=== PATIENT | female | born 1995 | race Caucasian/White ===

== ENCOUNTER 2017-05-14 07:32 | Emergency (ER) | payer OTHER ==
--- NOTE | 2017-05-14 08:27 | ER NURSING DOCUMENTATION ---
Nurse's Notes [facility] Name:Tarsha Meza Age:21 yrs Sex:Female :1995 Arrival Date:05/14/2017 Time:07:32 Bed3 Private MD: Diagnosis:Urinary Tract Infection (UTI) Presentation: 05/14 07:35 Acuity: KELSY 3 lc 07:42 Presenting complaint: Patient states: FOR 2 DAYS C/O DYSURIA WITH FREQUENCY AND lc BURNING, NO FEVER, BUT NOW HAS LEFT FLANK PAIN. Transition of care: patient was not received from another setting of care. Notified ED Physician of patient's arrival and CC. 07:42 Method Of Arrival: Walk In Triage Assessment: 07:49 General: Appears in no apparent distress, Behavior is appropriate for age, cooperative. lc Pain: Complains of pain in LEFT FLANK Pain does not radiate. Pain At worst was 4 out of 10 on a pain scale. Quality of pain is described as dull. Neuro: Level of Consciousness is awake, alert, Oriented to person, place, time, event. GI: Abdomen is non- distended Abd is soft and non tender X 4 quads. Derm: Skin is pink, warm & dry. Historical: - Allergies: No known drug Allergies; - Home Meds: 1. CONTROL - PMHx: KIDNEY STONES; - PSHx: None; - Tetanus: < 10 years. - Ebola Screening: : Patient negative for fever greater than or equal to 101.5 degrees Fahrenheit, and additional compatible Ebola Virus Disease symptoms. Patient denies exposure to infectious person. Patient denies travel to an Ebola-affected area in the 21 days before illness onset. . - Immunization history: Flu Vaccine < 1 year. - Social history: Smoking status: Patient states was never smoker of tobacco. Screenin:51 Infectious Disease Risk None. Abuse screen: Denies threats or abuse. Denies injuries lc from another. Nutritional screening: No deficits noted. Assessment: 07:51 See Triage Assessment done by same RN. Vital Signs: 07:50 BP 118 / 71; Pulse 76; Resp 16; Temp 97.8; Pulse Ox 93% on R/A; Weight 77.11 kg; Height lc 6 ft. (182.88 cm); Pain 4/10; 08:25 Pain 2/10; lc 07:50 Body Mass Index 23.06 (77.11 kg, 182.88 cm) ED Course: 07:34 Patient arrived in ED. dp 07:35 Jade Leonardo RN is Primary Nurse. 07:35 Triage completed. 07:51 Valuables Remains with patient Patient has correct armband on for positive lc identification. Bed in low position. Call light in reach. 07:53 Malachi Agrawal MD is Attending Physician. tl1 08:07 Kieran Wilder MD is Referral Physician. tl1 08:25 Urine collected. Clean catch specimen. lc Administered Medications: No medications were administered Point of Care Testing: Urine Dip: 07:55 pH: 7.0; ; Specific [place]: 1.020; Ketones: Negative; Glucose: Negative; Protein: lc Positive (++); Leukocytes: Positive; Nitrite: Negative ; Blood: Large (+++); Bilirubin: Negative ; Urobilinogen: Normal Outcome: 08:08 Discharge ordered by . tl1 08:25 Discharged to home ambulatory. 08:25 Condition: stable 08:25 Discharge Assessment: Patient awake, alert and oriented x 3. No cognitive and/or functional deficits noted. Patient verbalized understanding of disposition instructions. 08:25 Discharge instructions given to patient, Instructed on discharge instructions, follow up and referral plans. medication usage, RETURN IF PAIN WORSENS AND CULTURE RESULTS Demonstrated understanding of instructions, medications, Prescriptions given X 3. 08:26 Patient left the ED. 07 11:24 Discharge F/U Call: Spoke with: patient. Have you filled your prescriptions? yes. Did lc your discharge instructions answer all of your questions? yes Overall Care on a scale of 1-10 with 10 being the best care, you rate our care as: Other comments: FEELING BETTER, WILL CALL TOMORROW TO SEE WHICH ABX SHE SHOULD STAY ON WITH CULTURE RESULTS Signatures: Jade Leonardo RN RN Malachi Agrawal MD MD tl1 Saadia Lynn dp
--- NOTE | 2017-05-14 08:27 | ER PHYSICIAN DOCUMENTATION ---
Physician Documentation [facility] Name:Tarsha Meza Age:21 yrs Sex:Female :1995 Arrival Date:05/14/2017 Time:07:32 Bed3 Private MD: Malachi George Disposition: 05/14 08:28 Chart complete. tl1 Disposition: 05/14/17 08:08 Discharged to Home/Self Care. Impression: Urinary Tract Infection (UTI). - Condition is Good. - Discharge Instructions: BLADDER INFECTION, Female (Adult). - Prescriptions for Pyridium 200 mg Oral tablet - take 1 tablet by ORAL route 3 times per day; 6 tablet. Bactrim DS 160- 800 mg Oral Tablet - take 1 tablet by ORAL route every 12 hours for 3 days; 6 tablet. Keflex 500 mg Oral - take 1 capsule by ORAL route every 6 hours for 10 days; 12 capsule. - Medical Reconciliation form form. - Follow up: Kieran Wilder MD; When: 2 - 3 days; Reason: Recheck today's complaints, Continuance of care. - Problem is new. - Symptoms are unchanged. HPI: 07:53 This 21 yrs old Female presents to ER via Walk In with complaints of UTI tl1 Symptoms. 08:11 The patient presents with flank pain, on the left, urinary symptoms, dysuria, tl1 frequency, urgency. Onset: The symptoms/episode began/occurred gradually, 2 day(s) ago. Modifying factors: The symptoms are alleviated by nothing, the symptoms are aggravated by nothing. Associated signs and symptoms: The patient has no apparent associated signs or symptoms. Ectopic Risk: No risk factors noted. Severity of symptoms: At their worst the symptoms were moderate, in the emergency department the symptoms are unchanged. The patient's method of control includes BCP. Historical: - Allergies: No known drug Allergies; - Home Meds: 1. CONTROL - PMHx: KIDNEY STONES; - PSHx: None; - Tetanus: < 10 years. - Ebola Screening: : Patient negative for fever greater than or equal to 101.5 degrees Fahrenheit, and additional compatible Ebola Virus Disease symptoms. Patient denies exposure to infectious person. Patient denies travel to an Ebola-affected area in the 21 days before illness onset. . - Immunization history: Flu Vaccine < 1 year. - Social history: Smoking status: Patient states was never smoker of tobacco. ROS: 08:12 Positive for urinary symptoms. tl1 08:12 Constitutional: Negative for chills, fever. 08:12 All other systems are negative. Exam: 08:12 Constitutional: This is a well developed, well nourished patient who is awake, alert, tl1 and in no acute distress. 08:12 Neck: ROM/movement: is normal, is supple. 08:12 Cardiovascular: Rate: normal. 08:12 Respiratory: Respirations: normal. 08:12 Abdomen/GI: Palpation: soft, mild abdominal tenderness, in the suprapubic area. 08:12 Back: CVA tenderness, is absent. 08:12 : CVA tenderness, is absent. 08:12 Neuro: Exam negative for acute changes. Vital Signs: 07:50 BP 118 / 71; Pulse 76; Resp 16; Temp 97.8; Pulse Ox 93% on R/A; Weight 77.11 kg; Height lc 6 ft. (182.88 cm); Pain 4/10; 08:25 Pain 2/10; lc 07:50 Body Mass Index 23.06 (77.11 kg, 182.88 cm) lc MDM: 07:53 Patient medically screened. tl1 08:17 Differential diagnosis: kidney stone, urinary tract infection, early pyelonephritis. tl1 Data reviewed: vital signs, nurses notes, and as a result, I will discharge patient. Counseling: I had a detailed discussion with the patient and/or guardian regarding: the historical points, exam findings, and any diagnostic results supporting the discharge/admit diagnosis, lab results, the need for outpatient follow up, for a recheck, a family practitioner, to return to the emergency department if symptoms worsen or persist or if there are any questions or concerns that arise at home. Response to treatment: There is no appreciated change of the patient's symptoms at this time, and as a result, I will discharge patient. Special discussion: Need for f/u to check on culture results, and need to return if symptoms persist. She may need a CT to r/o another kidney stone, since she says what prompted her to come to the ED was mild left flank pain, somewhat similar to the earlier pains when she had a kidney stone several years ago.. 05/15 08:50 Order name: URINE CULTURE EDMS Dispensed Medications: No medications were administered Point of Care Testing: Urine Dip: 07:55 pH: 7.0; ; Specific [place]: 1.020; Ketones: Negative; Glucose: Negative; Protein: lc Positive (++); Leukocytes: Positive; Nitrite: Negative ; Blood: Large (+++); Bilirubin: Negative ; Urobilinogen: Normal Signatures: Jade Leonardo RN RN lc Leigh, Tom, MD MD tl1
== END 2017-05-14 08:27 | disposition home or self-care (01) ==
LOC: ER 07:32
DX: N39.0 Urinary tract infection, site not specified (principal); B95.7 Other staphylococcus as the cause of diseases classified elsewhere; Z87.442 Personal history of urinary calculi
CPT/HCPCS: 87077; 87086; 87186; 99283